=== PATIENT | female | born 1940 | race Caucasian/White ===

== ENCOUNTER → 2017-02-26 | Outpatient (CLI) | payer MEDICARE | END | disposition home or self-care (01) | LOC: CFH 10:53 | PROVIDERS: ATTEND Internal Medicine Critical Care Medicine | DX: R91.8 Other nonspecific abnormal finding of lung field (principal); J98.4 Other disorders of lung | CPT/HCPCS: 71020 ==

== ENCOUNTER → 2017-04-24 | Outpatient (CLI) | payer MEDICARE | END | disposition home or self-care (01) | LOC: WOUND 09:59 | PROVIDERS: ATTEND Internal Medicine | DX: S81.802D Unspecified open wound, left lower leg, subsequent encounter (principal); L03.116 Cellulitis of left lower limb; K21.9 Gastro-esophageal reflux disease without esophagitis; F41.9 Anxiety disorder, unspecified; E78.5 Hyperlipidemia, unspecified; J45.909 Unspecified asthma, uncomplicated; I12.9 Hypertensive chronic kidney disease with stage 1 through stage 4 chronic kidney disease, or unspecified chronic kidney disease; N18.2 Chronic kidney disease, stage 2 (mild); Z85.3 Personal history of malignant neoplasm of breast; Z72.89 Other problems related to lifestyle; Z90.710 Acquired absence of both cervix and uterus; X58.XXXD Exposure to other specified factors, subsequent encounter | CPT/HCPCS: 11042; G0463; WOU0463 ==

== ENCOUNTER → 2017-04-30 | Outpatient (CLI) | payer MEDICARE | END | disposition home or self-care (01) | LOC: WOUND 09:44 | PROVIDERS: ATTEND Internal Medicine | DX: L97.822 Non-pressure chronic ulcer of other part of left lower leg with fat layer exposed (principal); K21.9 Gastro-esophageal reflux disease without esophagitis; E78.5 Hyperlipidemia, unspecified; J45.909 Unspecified asthma, uncomplicated; G47.30 Sleep apnea, unspecified; I12.9 Hypertensive chronic kidney disease with stage 1 through stage 4 chronic kidney disease, or unspecified chronic kidney disease; N18.2 Chronic kidney disease, stage 2 (mild); F41.9 Anxiety disorder, unspecified; Z90.710 Acquired absence of both cervix and uterus; Z85.3 Personal history of malignant neoplasm of breast; Z72.89 Other problems related to lifestyle | CPT/HCPCS: 11042 ==

== ENCOUNTER → 2017-05-07 | Outpatient (CLI) | payer MEDICARE | END | disposition home or self-care (01) | LOC: WOUND 09:30 | PROVIDERS: ATTEND Internal Medicine | DX: L97.822 Non-pressure chronic ulcer of other part of left lower leg with fat layer exposed (principal); F41.9 Anxiety disorder, unspecified; K21.9 Gastro-esophageal reflux disease without esophagitis; E78.5 Hyperlipidemia, unspecified; I12.9 Hypertensive chronic kidney disease with stage 1 through stage 4 chronic kidney disease, or unspecified chronic kidney disease; N18.2 Chronic kidney disease, stage 2 (mild); J45.909 Unspecified asthma, uncomplicated; Z85.3 Personal history of malignant neoplasm of breast; Z90.710 Acquired absence of both cervix and uterus; Z72.89 Other problems related to lifestyle | CPT/HCPCS: 97597 ==

== ENCOUNTER → 2017-05-14 | Outpatient (CLI) | payer MEDICARE | END | disposition home or self-care (01) | LOC: WOUND 09:29 | PROVIDERS: ATTEND Internal Medicine | DX: L97.822 Non-pressure chronic ulcer of other part of left lower leg with fat layer exposed (principal); J44.9 Chronic obstructive pulmonary disease, unspecified; K21.9 Gastro-esophageal reflux disease without esophagitis; F41.9 Anxiety disorder, unspecified; E78.5 Hyperlipidemia, unspecified; I12.9 Hypertensive chronic kidney disease with stage 1 through stage 4 chronic kidney disease, or unspecified chronic kidney disease; N18.2 Chronic kidney disease, stage 2 (mild); Z90.710 Acquired absence of both cervix and uterus; Z85.3 Personal history of malignant neoplasm of breast; Z72.89 Other problems related to lifestyle | CPT/HCPCS: 97597 ==

== ENCOUNTER → 2017-05-28 | Outpatient (CLI) | payer MEDICARE | END | disposition home or self-care (01) | LOC: WOUND 09:25 | PROVIDERS: ATTEND Internal Medicine | DX: L97.822 Non-pressure chronic ulcer of other part of left lower leg with fat layer exposed (principal); J44.9 Chronic obstructive pulmonary disease, unspecified; F41.9 Anxiety disorder, unspecified; K21.9 Gastro-esophageal reflux disease without esophagitis; E78.5 Hyperlipidemia, unspecified; I12.9 Hypertensive chronic kidney disease with stage 1 through stage 4 chronic kidney disease, or unspecified chronic kidney disease; N18.2 Chronic kidney disease, stage 2 (mild); Z85.3 Personal history of malignant neoplasm of breast; Z90.710 Acquired absence of both cervix and uterus; Z72.89 Other problems related to lifestyle | CPT/HCPCS: G0463; WOU0463 ==

== ENCOUNTER → 2018-03-10 | Outpatient (CLI) | payer MEDICARE | END | disposition home or self-care (01) | LOC: CFH 13:02 | PROVIDERS: ATTEND Internal Medicine Critical Care Medicine | DX: R91.8 Other nonspecific abnormal finding of lung field (principal) | CPT/HCPCS: 71046 ==

== ENCOUNTER 2019-05-23 11:24 | Inpatient (IN) | payer MEDICARE ==
[~2019-05-23] VITALS: Ht 154.9 cm; Wt 76.2 kg
[2019-05-23] MEDS ORDERED: SODIUM CHLORIDE FLUSH 10ML SYR IVF ONE (12:00)
[2019-05-23] MEDS ORDERED: ASPIRIN 81 MG TABLET CHEW PO ONE (12:00)
[2019-05-23 12:02] LABS: BASOPHILS % (AUTO) 1 % (0-1); EOSINOPHILS # (AUTO) 0.38 x10^3/uL (0-0.4); EOSINOPHILS % (AUTO) 3 % (1-7); LYMPHOCYTES # (AUTO) 0.97 x10^3/uL (1-3.4); LYMPHOCYTES % (AUTO) 8 % (22-44); MD NO; MEAN CORPUSCULAR HEMOGLOBIN 28.9 pg (27.0-34.8); MEAN CORPUSCULAR HGB CONC 32.6 g/dL (32.4-35.8); MEAN CORPUSCULAR VOLUME 88.7 fL (80-100); MEAN PLATELET VOLUME 6.5 fL (7.4-10.4); MONOCYTES # (AUTO) 0.59 x10^3/uL (0.2-0.8); MONOCYTES % (AUTO) 5 % (2-9); NEUTROPHILS # (AUTO) 9.47 x10^3/uL (1.8-6.8); NEUTROPHILS % (AUTO) 82 % (42-75); PLATELET COUNT 372 x10^3/uL (130-400); RED BLOOD COUNT 4.08 x10^6/uL (3.82-5.3); RED CELL DISTRIBUTION WIDTH 14.7 % (9.6-15.2)
[2019-05-23 12:14] LABS: ALANINE AMINOTRANSFERASE 20 U/L (12-78); ALBUMIN 2.4 g/dL (3.4-5.0); ANION GAP 6 mmol/L (5-15); CHLORIDE 97 mmol/L (98-107); CREATININE 0.76 mg/dL (0.55-1.02)
[2019-05-23 12:18] LABS: ALKALINE PHOSPHATASE 120 U/L (45-117); BILIRUBIN,TOTAL 0.7 mg/dL (0.2-1.0); TROPONIN I < 0.015 ng/mL (0.000-0.045)
--- NOTE | 2019-05-23 12:38 | NUR ---
RADIOLOGIC TECHNOLOGIST MAMMOGRAM: PT TO ROOM FROM LOBBY VIA W/C
--- NOTE | 2019-05-23 13:15 | NUR ---
PT PLACED ON 2LNC FOR PULSE OX OF 89% LYING DOWN WITH HEAD ELEVATED TO 20 DEGREES. WARM BLANKET PROVIDED.
[2019-05-23] MEDS ORDERED: ASPIRIN 81 MG TABLET CHEW ONE (13:40)
[2019-05-23] MEDS ORDERED: CEFTRIAXONE PMX 1GM/50ML 50 ML ONE (13:46)
--- NOTE | 2019-05-23 13:56 | NUR ---
Salas courtney in [facility] - 05/23/19 at 1357 by TREMAYNE report called to lissa varela.
[2019-05-23] MEDS ORDERED: CEFTRIAXONE PMX 1GM/50ML 50 ML IVPB ONE (14:00)
[2019-05-23] MEDS: CEFTRIAXONE PMX 1GM/50ML 50 ML IV SCH ×2 (14:10→14:40)
--- NOTE | 2019-05-23 14:39 | NUR ---
pt transported to medical room 363 per EMT and RN. Report previously called to JELANI Hernandez.
[2019-05-23] MEDS ORDERED: DOXYCYCLINE 100 MG in DEXTROSE 5% 250 ML IV ONE (15:00)
[2019-05-23] MEDS ORDERED: methylPREDNISolone SOD SUCC 40 MG/ML IVPush SCH (15:00)
[2019-05-23] MEDS ORDERED: ALBUTEROL/IPRATROPIUM 2.5MG/0.5MG, 3 ML NPPB PRN (15:00)
[2019-05-23] MEDS ORDERED: ENALAPRILAT 1.25 MG/ML, 2ML IV PRN (15:00)
[2019-05-23] MEDS ORDERED: GUAIFENESIN/DM 200-20MG, 10ML UDC PO PRN (15:00)
[2019-05-23] MEDS ORDERED: DOCUSATE 100 MG CAPSULE PO PRN (15:00)
[2019-05-23] MEDS: ENOXAPARIN 40 MG/0.4 ML SQ SCH (16:53)
[2019-05-23] MEDS: DOXYCYCLINE 100 MG in DEXTROSE 5% 250 ML IV SCH (16:53)
[2019-05-23 19:41] VITALS: BP 129/66
[2019-05-23] MEDS: FAMOTIDINE 20 MG TABLET PO SCH (21:29)
[2019-05-23] MEDS: ATORVASTATIN 40 MG TABLET PO SCH (21:29)
[2019-05-24 02:09] VITALS: BP 107/63
[2019-05-24 02:10] VITALS: BP 132/56
[2019-05-24] MEDS: DOXYCYCLINE 100 MG in DEXTROSE 5% 250 ML IV SCH ×2 (03:43→16:00)
[2019-05-24 05:22] LABS: MEAN CORPUSCULAR HEMOGLOBIN 29.8 pg (27.0-34.8); MEAN CORPUSCULAR HGB CONC 32.7 g/dL (32.4-35.8); MEAN CORPUSCULAR VOLUME 91.1 fL (80-100); MEAN PLATELET VOLUME 6.8 fL (7.4-10.4); PLATELET COUNT 404 x10^3/uL (130-400); RED BLOOD COUNT 3.99 x10^6/uL (3.82-5.3); RED CELL DISTRIBUTION WIDTH 14.7 % (9.6-15.2)
[2019-05-24 05:30] LABS: ANION GAP 8 mmol/L (5-15); CALCIUM 9.2 mg/dL (8.5-10.1); CHLORIDE 99 mmol/L (98-107); CREATININE 0.72 mg/dL (0.55-1.02)
[2019-05-24] MEDS: OMEPRAZOLE 20 MG CAPSULE.DR PO SCH (05:40)
[2019-05-24] MEDS: METOPROLOL SUCCINATE 50 MG TAB.ER.24H PO SCH (05:40)
[2019-05-24 05:52] LABS: BASOPHILS # (AUTO) 0.01 x10^3/uL (0-0.1); BASOPHILS % (AUTO) 0 % (0-1); EOSINOPHILS # (AUTO) 0.07 x10^3/uL (0-0.4); EOSINOPHILS % (AUTO) 1 % (1-7); LYMPHOCYTES # (AUTO) 0.63 x10^3/uL (1-3.4); LYMPHOCYTES % (AUTO) 7 % (22-44); MD SCAN; MONOCYTES # (AUTO) 0.17 x10^3/uL (0.2-0.8); MONOCYTES % (AUTO) 2 % (2-9); NEUTROPHILS # (AUTO) 8.06 x10^3/uL (1.8-6.8); NEUTROPHILS % (AUTO) 90 % (42-75)
[2019-05-24 06:58] VITALS: BP 150/72
[2019-05-24] MEDS: CITALOPRAM 20 MG TABLET PO SCH (08:07)
[2019-05-24] MEDS: LOSARTAN 50MG TABLET PO SCH (08:07)
[2019-05-24] MEDS: HYDROCHLOROTHIAZIDE 25 MG TABLET PO SCH (08:07)
[2019-05-24] MEDS: FAMOTIDINE 20 MG TABLET PO SCH ×2 (08:07→20:03)
[2019-05-24] MEDS: BUDESONIDE 0.5 MG/2 ML INHA INH SCH ×2 (09:00→19:53)
[2019-05-24 13:28] VITALS: BP 112/67
[2019-05-24] MEDS: CEFTRIAXONE PMX 1GM/50ML 50 ML IV SCH (14:03)
[2019-05-24] MEDS: ENOXAPARIN 40 MG/0.4 ML SQ SCH (16:00)
[2019-05-24 19:51] VITALS: BP 116/74
[2019-05-24] MEDS: ATORVASTATIN 40 MG TABLET PO SCH (20:03)
[2019-05-25 02:00] VITALS: BP 153/71
[2019-05-25] MEDS: DOXYCYCLINE 100 MG in DEXTROSE 5% 250 ML IV SCH ×2 (04:04→16:49)
[2019-05-25 04:21] VITALS: BP 161/61
[2019-05-25] MEDS: OMEPRAZOLE 20 MG CAPSULE.DR PO SCH (06:04)
[2019-05-25] MEDS: METOPROLOL SUCCINATE 50 MG TAB.ER.24H PO SCH (06:04)
[2019-05-25 06:22] VITALS: BP 167/73
[2019-05-25] MEDS: BUDESONIDE 0.5 MG/2 ML INHA INH SCH ×2 (09:00→22:53)
[2019-05-25] MEDS: CITALOPRAM 20 MG TABLET PO SCH (09:29)
[2019-05-25] MEDS: LOSARTAN 50MG TABLET PO SCH (09:30)
[2019-05-25] MEDS: FAMOTIDINE 20 MG TABLET PO SCH ×2 (09:30→20:03)
[2019-05-25] MEDS: HYDROCHLOROTHIAZIDE 25 MG TABLET PO SCH (09:30)
[2019-05-25 12:08] VITALS: BP 159/63
[2019-05-25] MEDS: CEFTRIAXONE PMX 1GM/50ML 50 ML IV SCH (15:18)
[2019-05-25] MEDS: ENOXAPARIN 40 MG/0.4 ML SQ SCH (15:19)
[2019-05-25] MEDS ORDERED: ZOLPIDEM 5MG TABLET PO PRN (18:00)
[2019-05-25 19:54] VITALS: BP 130/68
[2019-05-25] MEDS: ATORVASTATIN 40 MG TABLET PO SCH (20:03)
[2019-05-26 01:54] VITALS: BP 122/63
[2019-05-26] MEDS: DOXYCYCLINE 100 MG in DEXTROSE 5% 250 ML IV SCH (04:33)
[2019-05-26] MEDS: METOPROLOL SUCCINATE 50 MG TAB.ER.24H PO SCH (06:03)
[2019-05-26] MEDS: OMEPRAZOLE 20 MG CAPSULE.DR PO SCH (06:03)
[2019-05-26] MEDS: BUDESONIDE 0.5 MG/2 ML INHA INH SCH (06:53)
[2019-05-26 08:01] VITALS: BP 169/74
[2019-05-26] MEDS: CITALOPRAM 20 MG TABLET PO SCH (08:29)
[2019-05-26] MEDS: FAMOTIDINE 20 MG TABLET PO SCH (08:29)
[2019-05-26] MEDS: HYDROCHLOROTHIAZIDE 25 MG TABLET PO SCH (08:29)
[2019-05-26] MEDS: LOSARTAN 50MG TABLET PO SCH (08:30)
[2019-05-26] MEDS ORDERED: CEFD300C37 PO (11:15)
[2019-05-26] MEDS ORDERED: PRED10TA PO (11:17)
[2019-05-26] MEDS ORDERED: DOXY100C2 PO ×2 (11:19→11:22)
== END 2019-05-26 12:45 | disposition home or self-care (01) | DRG 193 ==
LOC: ED 13:22 → EDIP 13:23 → ED 13:28 → 3NE 14:39 → DCLOUNGE 05-26 12:37
PROVIDERS: ADMIT Family Medicine; ATTEND Family Medicine
DX: J18.1 Lobar pneumonia, unspecified organism (principal); J96.01 Acute respiratory failure with hypoxia; E87.1 Hypo-osmolality and hyponatremia; J45.901 Unspecified asthma with (acute) exacerbation; E78.00 Pure hypercholesterolemia, unspecified; E78.5 Hyperlipidemia, unspecified; G47.33 Obstructive sleep apnea (adult) (pediatric); I11.9 Hypertensive heart disease without heart failure; I25.10 Atherosclerotic heart disease of native coronary artery without angina pectoris; R07.89 Other chest pain; Z85.3 Personal history of malignant neoplasm of breast; Z90.710 Acquired absence of both cervix and uterus; Z99.81 Dependence on supplemental oxygen; Z83.3 Family history of diabetes mellitus; Z80.8 Family history of malignant neoplasm of other organs or systems; Z83.79 Family history of other diseases of the digestive system
CPT/HCPCS: 36415; 71045; 80048; 80053; 83605; 83880; 84145; 84484; 85025; 87040; 93005; 94640; 96374; 99285; G0378; J0696; J1650; J7060; J7620; J7626; J2920; J7512

== ENCOUNTER 2020-09-16 08:35 | Emergency (ER) | payer MEDICARE ==
[~2020-09-16] VITALS: Ht 154.9 cm; Wt 79.5 kg
[~2020-09-16 08:35] MED LIST: CEFD300C37 PO; DOXY100C2 PO; PRED10TA PO
[2020-09-16] MEDS ORDERED: L.E.T SOLUTION TP ONE ×2 (09:09→09:30)
[2020-09-16] MEDS ORDERED: DIPH,PERTUSS(ACELL),TET VAC/PF 0.5 ML IM-VACC ONE ×2 (09:19→09:30)
[2020-09-16] MEDS ORDERED: LIDOCAINE-MPF 1%, 5ML ONE (09:19)
[2020-09-16 09:26] LABS: BASOPHILS % (AUTO) 1 % (0-1); EOSINOPHILS % (AUTO) 9 % (1-7); LYMPHOCYTES % (AUTO) 21 % (22-44); MEAN CORPUSCULAR HEMOGLOBIN 30.8 pg (27.0-34.8); MEAN CORPUSCULAR HGB CONC 33.7 g/dL (32.4-35.8); MEAN PLATELET VOLUME 6.8 fL (7.4-10.4); MONOCYTES % (AUTO) 8 % (2-9); NEUTROPHILS % (AUTO) 60 % (42-75); PLATELET COUNT 257 x10^3/uL (130-400); RED BLOOD COUNT 4.53 x10^6/uL (3.82-5.3); RED CELL DISTRIBUTION WIDTH 13.6 % (9.6-15.2)
[2020-09-16] MEDS ORDERED: CEFAZOLIN PMX 1GM/50ML 50 ML IVPB ONE (09:30)
[2020-09-16] MEDS ORDERED: SODIUM CHLORIDE FLUSH 10ML SYR IVF ONE (09:30)
[2020-09-16] MEDS ORDERED: LIDOCAINE-MPF 1%, 5ML INFIL ONE (09:30)
[2020-09-16 09:31] LABS: MD NO
[2020-09-16 09:35] LABS: ALBUMIN 2.9 g/dL (3.4-5.0); ANION GAP 5 mmol/L (5-15); CALCIUM 9.1 mg/dL (8.5-10.1); CHLORIDE 98 mmol/L (98-107); CREATININE 0.92 mg/dL (0.55-1.02)
[2020-09-16] MEDS ORDERED: CEFAZOLIN PMX 1GM/50ML 50 ML ONE (09:46)
[2020-09-16] MEDS ORDERED: NEOSPORIN OINT. PKT 1 PACKET ONE (10:02)
[2020-09-16 11:58] VITALS: BP 195/83
== END 2020-09-16 12:00 | disposition home or self-care (01) ==
LOC: ED 09:35
DX: S81.012A Laceration without foreign body, left knee, initial encounter (principal); R00.1 Bradycardia, unspecified; I44.0 Atrioventricular block, first degree; I10 Essential (primary) hypertension; I25.10 Atherosclerotic heart disease of native coronary artery without angina pectoris; Z90.710 Acquired absence of both cervix and uterus; X58.XXXA Exposure to other specified factors, initial encounter; Y93.89 Activity, other specified; Y92.098 Other place in other non-institutional residence as the place of occurrence of the external cause; Y99.8 Other external cause status
CPT/HCPCS: 12032; 36415; 73564; 80048; 82040; 85025; 90471; 90715; 93005; 96365; 96366; 99285; J0690

== ENCOUNTER → 2021-04-26 | Outpatient (CLI) | payer MEDICARE | END | disposition home or self-care (01) | LOC: CFH 10:24 | PROVIDERS: ATTEND Nurse Practitioner Family | DX: J98.4 Other disorders of lung (principal); J45.21 Mild intermittent asthma with (acute) exacerbation | CPT/HCPCS: 71046 ==